=== PATIENT | male | born 2000 | race Caucasian/White ===

== ENCOUNTER 2020-11-03 14:43 | Emergency (ER) | payer OTHER, SELFPAY ==
[2020-11-03 15:09] VITALS: BP 120/74; PULSE 83; RESP 20; TEMP 37; O2SAT 98; BMI 14.6
== END 2020-11-03 17:50 | disposition left against medical advice (07) ==
PROVIDERS: Emergency Provider Family Medicine
DX: Z53.21 Procedure and treatment not carried out due to patient leaving prior to being seen by health care provider (principal)
CPT/HCPCS: 99282